=== PATIENT | female | born 1940 | race Caucasian/White ===

== ENCOUNTER 2017-07-08 12:20 | Inpatient (IN) | payer OTHER ==
[~2017-07-08] VITALS: Ht 167.6 cm; Wt 43.2 kg
--- NOTE | ~2017-07-08 | PROC ---
[address] [address] PROCEDURE REPORT Name: RHIANNON HAYWOOD Room: [address]#: [id number] Admission: 07/08/17 Attend Phys: Marianna Justice Discharge: 07/11/17 Date of : 40 Report #: [id number] THIS REPORT FOR: //name// For additional GI procedure details, please see the Provation report in Perceptive 7 content. By: 1314Medical Records Staff RITA /ANNITA
[~2017-07-08 12:20] MED LIST: ALDACTONE25 MG PO; ASPIR 8181 MG PO; ASPIRIN81 M2; ASPIRIN81 M2 PO; CARAFATE 1 GM TA1 G1 PO; CARDIZEM CD120 MG PO; CARVEDILOL6.25 MG PO; COLACE100 MG PO; COUMADIN 1MG TAB1 M1 PO; COUMADIN 4 MG TA4 M1 PO; DIGITEK250 MCG PO; DULCOLAX5 MG PO; DUONEB 2.5-0.5 M3 ML INH; FIBERCON625 M1 PO; FLAGYL500 MG PO; HYDROCODONE-AP1 EAC6 PO; LASIX 40 MG TAB40 M2 PO; LEVAQUIN 500 M500 M2 PO; LEVOTHYROXINE100 MC1 PO; LISINOPRIL2.5 MG; MIRALAX17 GM PO; NICODERM CQ1 EAC1 TD; NICOTINE TRANSD21 M1 TRANSDERM; NORCO 5-325 TA1 EACH PO; OXYCODONE HCL5 M1 PO; POTASSIUM20 PO; PREDNISONE 10 M10 MG PO; PROTONIX40 M1 PO; REGLAN 10 MG TA10 MG PO; SIMVASTATIN20 MG PO; SINGULAIR 10 MG10 M1 PO; TOPROL XL25 MG PO
[2017-07-08 12:28] VITALS: BP 114/83
[2017-07-08 13:46] LABS: PLATELET COUNT* 410 thou/uL (150-400); RDW-CV 31.6 % (10.5-14.5)
[2017-07-08 13:48] LABS: HEMATOCRIT 40.2 % (37.0-47.0); HEMOGLOBIN 13.1 gm/dL (12.0-15.0); MCH 24.8 pg (26.0-34.0); MCHC 32.6 g/dL (28.0-37.0); MCV 75.9 fL (80.0-100.0); MPV 8.8 fl. (7.2-11.1); NUCLEATED RBCS 0 /100WBC
[2017-07-08 13:49] LABS: ANION GAP 8 mmol/L (7-16); BUN 12 mg/dL (7-18); CALCIUM 9.1 mg/dL (8.5-10.1); CHLORIDE 91 mmol/L (98-107); CO2 27 mmol/L (21-32); CREATININE 0.7 mg/dL (0.6-1.3); GLUCOSE 87 mg/dL (70-99); POTASSIUM 3.9 mmol/L (3.5-5.1); SODIUM 126 mmol/L (136-145)
[2017-07-08 13:56] LABS: ALBUMIN 3.5 g/dL (3.4-5.0); ALKALINE PHOSPHATASE 102 U/L (46-116); SGOT 18 U/L (15-37); SGPT 19 U/L (30-65); TOTAL BILIRUBIN 0.5 mg/dL (<0.1-1.0); TOTAL PROTEIN 7.9 g/dL (6.4-8.2); TROPONIN-I LEVEL <0.06 ng/mL (<0.06)
[2017-07-08 14:00] LABS: INR 2.1; PROTIME 20.7 Seconds (9.20-11.50)
[2017-07-08 15:08] LABS: ABSOLUTE BASOPHILS 0.1 thou/uL (0.0-0.2); ABSOLUTE LYMPHOCYTES 0.5 thou/uL (0.8-5.3); ABSOLUTE NEUTROPHILS 10.3 thou/uL (1.6-8.1)
[2017-07-08 15:11] LABS: ANISOCYTOSIS 2+; HYPOCHROMASIA 1+; PLATELET ESTIMATE ADEQUATE
--- NOTE | 2017-07-08 15:15 | NUR ---
RECTAL PERFORMED BY MD ERIS ASSISTED BY MAURICE RN
[2017-07-08 16:56] LABS: URINE BILIRUBIN NEGATIVE (Negative); URINE BLOOD NEGATIVE (Negative); URINE CLARITY CLEAR; URINE COLOR YELLOW; URINE GLUCOSE-RANDOM NEGATIVE (Negative); URINE KETONES NEGATIVE (Negative); URINE LEUKOCYTES-REFLEX NEGATIVE (Negative); URINE NITRITE-REFLEX NEGATIVE (Negative); URINE PROTEIN NEGATIVE (Negative); URINE UROBILINOGEN 0.2 E.U./dl (0.2-1.0)
[2017-07-08 17:03] VITALS: BP 117/69
[2017-07-08 17:28] VITALS: BP 111/66
--- NOTE | 2017-07-08 17:41 | NUR ---
PATIENT TRANSFERRED FROM ER TO ROOM 103. ALERT AND ORIENTED X3. FORGETFUL. DENIES PAIN. ADMISSION HISTORY AND ASSESSMENT CHARTED. VSS. WHEEZING-SMOKER. RA SAT 98%. LAST BM FRIDAY. ENEMA GIVEN AT THIS TIME. REFUSED SCD'S AT THIS TIME DUE TO ENEMA BEING GIVEN AND SHE MAY NEED TO GET UP. EDUCATED ON FALL PREVENTION. INSTRUCTED TO CALL FOR ASSISTANCE IF NEEDED. AT BEDSIDE. CALL LIGHT WITHIN REACH. WILL CONTINUE TO MONITOR.
--- NOTE | 2017-07-08 17:46 | EKG ---
[place] [address] ELECTROCARDIOGRAM REPORT Name: RHIANNON HAYWOOD Room: [address] ADM IN .R.#: [id number] Admission: 07/08/17 Attend Phys: Marianna Justice Discharge: Date of : 40 Report #: [id number] THIS REPORT FOR: //name// [facility] ED Test Date: 2017-07-08 Test Time: 12:33:35 Pat Name: RHIANNON HAYWOOD Department: Room: [facility] Gender: Semiconductor Packages Tester: Ibeth BRUNER : 1940 Requested By: Inessa Adams Order Number: [id number] MD: Ravinder Dunn Measurements Intervals [place] Rate: 90 P: MS: QRS: 57 QRSD: 102 T: -5 QT: 359 QTc: 440 Interpretive Statements Atrial fibrillation Borderline repolarization abnormality Anteroseptal infarct age indeterminate possible Compared to ECG 03/01/2017 14:20:03 Possible ischemia no longer present Electronically Signed On 07-08-2017 17:46:50 SUPERVISOR PROP MAKING by Ravinder Dunn [email or web address] <ELECTRONICALLY SIGNED> By: Ravinder Dunn MD, FACC 07/08/17 1746 1233 1233 Ravinder Dunn MD, FAC /EPI
--- NOTE | 2017-07-08 18:17 | NUR ---
PATIENT HAS HAD SEVERAL VERY LARGE BOWEL MOVEMENTS SINCE ENEMA, SOFT/LIQUID STOOL.
[2017-07-08 20:30] VITALS: BP 109/71
[2017-07-09 04:54] LABS: ALBUMIN 2.7 g/dL (3.4-5.0); CALCIUM 8.2 mg/dL (8.5-10.1); CREATININE 0.5 mg/dL (0.6-1.3); POTASSIUM 4.3 mmol/L (3.5-5.1); TOTAL BILIRUBIN 0.5 mg/dL (<0.1-1.0); TOTAL PROTEIN 5.4 g/dL (6.4-8.2)
[2017-07-09 04:57] LABS: ABSOLUTE BASOPHILS 0.1 thou/uL (0.0-0.2); ABSOLUTE EOSINOPHILS 0.3 thou/uL (0.0-0.7); ABSOLUTE LYMPHOCYTES 0.7 thou/uL (0.8-5.3); ABSOLUTE MONOCYTES 1.4 thou/uL (0.0-1.2); ABSOLUTE NEUTROPHILS 11.3 thou/uL (1.6-8.1); BASOPHILS 0.7 %; EOSINOPHILS 2.3 %; HEMATOCRIT 34.3 % (37.0-47.0); LYMPHOCYTES 5.3 %; MCH 24.2 pg (26.0-34.0); MCHC 32.4 g/dL (28.0-37.0); MCV 74.8 fL (80.0-100.0); MONOCYTES 9.8 %; MPV 8.7 fl. (7.2-11.1); NUCLEATED RBCS 0 /100WBC; PLATELET COUNT* 359 thou/uL (150-400); POLYS 81.9 %; RBC 4.59 mil/uL (4.20-5.00); RDW-CV 31.4 % (10.5-14.5); WBC 13.8 thou/uL (4.0-11.0)
[2017-07-09 05:21] LABS: HEMOGLOBIN 11.1 gm/dL (12.0-15.0)
--- NOTE | 2017-07-09 07:44 | NUR ---
PATIENT ALERT TO SELF AND PLACE, CONFUSED. HAD MULTIPLE BOWEL MOVEMENTS DURING THE NIGHT. CHANGED EVERY HOUR, BARRIER CREAM APPLIED. FLUIDS INFUSING PER ORDER. BED ALARM IN USE. PICTURE ON CHART OF HEELED WOUND ON BUTTOCK, PRESENT ON ADMISSION. MEDINA TO DEPENDENT DRAINAGE. HOURLY ROUNDS. NURSING WILL CONTINUE TO MONITOR.
[2017-07-09 08:36] VITALS: BP 126/62
[2017-07-09 15:00] VITALS: BP 117/55
--- NOTE | 2017-07-09 16:18 | NUR ---
PATIENT ALERT AND ORIENTED X2. DENIES PAIN. TOLERATING MEALS. SOAP SUDS ENEMA TODAY, MULTIPLE SOFT/LIQUID BOWEL MOVEMENTS TODAY. DULCOLAX THIS AM WELL. REPOSITIONED EVERY 2 HOURS. BARRIER CREAM APPLIED- MELANY AREA EXCORIATED. WOUND LEFT BUTTOCKS UNCHANGED THIS SHIFT. DRESSING WILL NOT STAY IN PLACE DUE TO CONTINUOUS LOOSE STOOL. MEDINA IN PLACE WITH JANEL URINE. NS AT 100MLS/HR INFUSING. GI CONSULT TODAY. BED ALARM IN PLACE. CALL LIGHT WITHIN REACH. WILL CONTINUE TO MONITOR.
--- NOTE | 2017-07-09 16:22 | NUR ---
SPOKE WITH PT.AND AT BEDSIDE. SEEMS HARD OF HEARING. NSG.STATED PT.IS FORGETTFUL. PT.LIVES WITH . SHE HAS A WALKER AND CANE AT HOME. IS ON SERVICE WITH [facility]. HAS BEEN AT [place] BEFORE. SHE IS ABLE TO BATHE AND DRESS SELF. SHE SAID SHE AND GO OUT TO EAT OR HE BRINGS IN TAKE OUT FOOD. SHE SAID SHE DOESN'T EAT MUCH, SHE JUST ISN'T HUNGRY. WAS SEEN BY THERMOMETER PRODUCTION WORKER AND MEETS DX OF [employer]. BOOST DRINK ORDERED TID. CM WILL FOLLOW.
[2017-07-09 19:45] VITALS: BP 141/51
--- NOTE | 2017-07-10 04:47 | NUR ---
PATIENT ALERT TO SELF AND PLACE. STILL PASSING STOOL BUT NOT MUCH PREVIOUS NIGHT. CHANGED EVERY FEW HOURS, BARRIER CREAM APPLIED. LEFT BUTTOCK WOUND NOTED. REPOSITIONED EVERY TWO HOURS. MEDNIA TO DEPENDENT DRAINAGE. FLUIDS INFUSING PER ORDER. HOURLY ROUNDS. BED ALARM IN USE. NURSING WILL CONTINUE TO MONITOR.
[2017-07-10 07:44] VITALS: BP 100/64
[2017-07-10 11:27] VITALS: BP 100/64
[2017-07-10 11:57] VITALS: BP 100/64
[2017-07-10 15:54] VITALS: BP 110/58
--- NOTE | 2017-07-10 18:02 | NUR ---
ALERT AND ORIENTED TO PERSON AND PLACE. IV IS PATENT AND INFUSING. DENIES NEED FOR PAIN MEDICATION. DENIES NAUSEA. TOLERATING DIET. UP TO CHAIR WITH ASSIST X1 WITH WALKER AND GAIT BELT FOR LUNCH. VSS ON ROOM AIR. HOURLY ROUNDS HAVE BEEN MAINTAINED THROUGHOUT SHIFT. CALL LIGHT IS WITHIN REACH. NURSING WILL CONTINUE TO MONITOR.
[2017-07-10 20:00] VITALS: BP 113/75
--- NOTE | 2017-07-11 05:13 | NUR ---
PATIENT REMAINS ORIENTED TO SELF AND PLACE. VITALS STABLE. RA. REPOSITIONED EVERY TWO HOURS. INCONTIENT OF URINE AND STOOL. PATIENT ONLY HAD A FEW SMALL BOWEL MOVEMENTS DURING THE NIGHT. FLUIDS INFUSING PER ORDER. FREQUENT ROUNDS. BED ALARM IN USE. NURSING WILL CONTINUE TO MONITOR.
--- NOTE | 2017-07-11 07:17 | NUR ---
PATIENT REMAINS ORIENTED TO SELF AND PLACE. VITALS STABLE. RA. INCREASED WHEEZING NOTICED. PHYSICIAN NOTIFIED, ORDERS RECEIVED. REPOSITIONED EVERY TWO HOURS. INCONTIENT OF URINE AND STOOL. PATIENT HAD TWO SMALL FORMED BOWEL MOVEMENTS DURING MY SHIFT. FREQUENT ROUNDS. BED ALARM IN USE. NURSING WILL CONTINUE TO MONITOR.
[2017-07-11 07:30] VITALS: BP 117/74
[2017-07-11 12:00] LABS: ABSOLUTE BASOPHILS 0.1 thou/uL (0.0-0.2); ABSOLUTE EOSINOPHILS 0.2 thou/uL (0.0-0.7); ABSOLUTE LYMPHOCYTES 1.1 thou/uL (0.8-5.3); ABSOLUTE MONOCYTES 1.1 thou/uL (0.0-1.2); BASOPHILS 0.9 %; EOSINOPHILS 1.7 %; HEMATOCRIT 35.8 % (37.0-47.0); HEMOGLOBIN 11.7 gm/dL (12.0-15.0); LYMPHOCYTES 10.1 %; MCH 24.7 pg (26.0-34.0); MCHC 32.7 g/dL (28.0-37.0); MCV 75.7 fL (80.0-100.0); MONOCYTES 10.7 %; MPV 8.5 fl. (7.2-11.1); NUCLEATED RBCS 0 /100WBC; PLATELET COUNT* 351 thou/uL (150-400); POLYS 76.6 %; RBC 4.73 mil/uL (4.20-5.00); RDW-CV 31.5 % (10.5-14.5); WBC 10.5 thou/uL (4.0-11.0)
[2017-07-11 12:09] LABS: CALCIUM 8.8 mg/dL (8.5-10.1); CREATININE 0.5 mg/dL (0.6-1.3); POTASSIUM 4.4 mmol/L (3.5-5.1)
[2017-07-11 12:47] LABS: BURR CELLS 1+; OVALOCYTES 1+; PLATELET ESTIMATE ADEQUATE
[2017-07-11 12:48] LABS: ANISOCYTOSIS 2+; POIKILOCYTOSIS 2+; TARGET CELLS Occasional
[2017-07-11 14:43] VITALS: BP 117/74
[2017-07-11 15:06] LABS: INR 1.5; PROTIME 14.2 Seconds (9.20-11.50)
[2017-07-11 15:22] VITALS: BP 100/64
--- NOTE | 2017-07-11 15:47 | NUR ---
PT.TO BE DISCHARGED AFTER PROCEDURE TODAY. NOTIFIED [facility] [phone] AND FAXED HOME HEALTH ORDERS, H&P AND GI CONSULTATION TO HER [phone]. NURSING WILL FAX FINAL MEDICATION ORDERS TO [phone] WHEN SHE DISCHARGES.
[2017-07-11 16:00] VITALS: BP 100/64
[2017-07-11 17:00] VITALS: BP 121/69
--- NOTE | 2017-07-23 16:13 | CON ---
[address] [address] CONSULTATION Name: RHIANNON HAYWOOD Room: [address]#: [id number] Admission: 07/08/17 Attend Phys: Marianna Justice Discharge: 07/11/17 Date of : 40 Report #: [id number] THIS REPORT FOR: //name// CC: Angel Gottlieb DICTATED BY: Ashley Lopez [facility] DATE OF SERVICE: 07/09/2017 Please note at the time of this dictation, the patient was seen and physically examined by myself. REASON FOR CONSULTATION: Abdominal pain and fecal impaction. HISTORY OF PRESENT ILLNESS: This is a 77-year-old female who presented to the Emergency Room with having abdominal pain. She complained to the home health nurse that she was having a lot of abdominal pain and noticed that her stool was dark; however, in the ER, Hemoccult was negative and the patient is on warfarin. The patient was unable to let anyone know when her last time she had a bowel movement nor could her due to her dementia. The patient was seen by us back in 02/2017 for her complaints of some hematemesis. It was noted that she had abnormal findings on her CT scan of her esophagus in which she had grade D esophagitis, a large hiatal hernia and she had retained food in her stomach. At that time, she was started on Reglan. She was also started on Carafate and Protonix and was to follow up with us in the office, but she never did so. She also at that time underwent a flex sig to remove a fecal impaction in which she was noted to have internal and external hemorrhoids. The patient is unable to tell me if she takes anything at home for her bowels which in reviewing her medication list, it looks like she may take a bisacodyl daily, but is unsure and she cannot tell me if she does or not. ALLERGIES: No known drug allergies. MEDICATIONS FROM HOME: Digoxin, levothyroxine, metoprolol succinate, warfarin, simvastatin, spironolactone, bisacodyl and metoclopramide. PAST MEDICAL HISTORY: Atrial fibrillation, on anticoagulant therapy; GERD; hyperlipidemia; COPD; hypothyroidism; coronary artery disease. She has had MIs in 2009 and 2012 with stent placement and EGD back in February for her esophagitis. PAST SURGICAL HISTORY: Includes bilateral cataract removal, thyroid cancer with a partial thyroidectomy and her stents, right hip [place] [address] [place] [address] CONSULTATION Name: RHIANNON HAYWOOD Room: [address]#: [id number] Admission: 07/08/17 Attend Phys: Marianna Justice Discharge: 07/11/17 Date of : 40 Report #: [id number] FAMILY HISTORY: Noncontributory. SOCIAL HISTORY: She lives with her . Denies any alcohol, tobacco or illegal drug use at this time. REVIEW OF SYSTEMS: A 12-point review of systems is essentially negative except what is mentioned in the HPI. PHYSICAL EXAMINATION: VITAL SIGNS: Temperature 36.6, pulse 77, respirations 18, blood pressure 126/62. HEART: Regular rate and rhythm. LUNGS: Clear. ABDOMEN: Soft, positive bowel sounds in all 4 quadrants with some tenderness noted in the lower abdominal region. NEUROLOGIC: The patient is alert and oriented to person and she will follow commands. LABORATORY DATA: Hemoglobin is 11.1, hematocrit 34.3, white count is 13.8, platelets 259. Sodium 131, potassium 4.3, chloride 98, CO2 of 24, BUN is 8, creatinine is 0.5, GFR is 120, glucose is 91. PT is 20.7, INR is 2.1. Abdominal x-ray showed large amount of gas and stool throughout her colon and some rectal fecal impaction in the rectal vault. IMPRESSION: 1. Abdominal pain. 2. Constipation. 3. Loss of appetite. 4. History of grade D esophagitis and retained food back in February. 5. History of fecal impaction in 02/2017. 6. History of anticoagulant therapy secondary to atrial fibrillation. 7. Dementia. PLAN: 1. Soapsuds enema this a.m. 2. Dulcolax tablets 4 to equal 20 mg this a.m. 3. We will restart her Protonix and Reglan 5 mg a.c. and at bedtime. 4. The patient will need to have a followup EGD to check for healing of her esophagitis as an outpatient. She is currently not having any difficulty with swallowing. [address] [place] [address] CONSULTATION Name: CHASTITYMINOR THOMPSONGila Alexander Room: [address] IN M.R.#: [id number] Admission: 07/08/17 Attend Phys: Marianna Justice Discharge: 07/11/17 Date of : 40 Report #: [id number] Thank you for allowing us to participate in this patient's care. Please do not hesitate to call with any questions in regard to this consult. <ELECTRONICALLY SIGNED> By: Kaylin Galeana MD 07/23/17 1613 1116 [id number] Galeana MD /nt
== END 2017-07-11 19:51 | disposition home health service (06) | DRG 388 ==
LOC: M.ERS 12:20 → M.ORTHSURG 15:55 → M.TBA-ER 15:55 → M.ORTHSURG 16:25
PROVIDERS: Internal Medicine Gastroenterology; Personal Emergency Response Attendant; ADMIT Internal Medicine
PROC: 0DJD8ZZ Inspection of Lower Intestinal Tract, Via Natural or Artificial Opening Endoscopic (ICD-10-PCS; principal; 2017-07-11)
DX: K56.41 Fecal impaction (principal); G93.41 Metabolic encephalopathy; E43 Unspecified severe protein-calorie malnutrition; Z68.1 Body mass index [BMI] 19.9 or less, adult; R65.10 Systemic inflammatory response syndrome (SIRS) of non-infectious origin without acute organ dysfunction; I48.91 Unspecified atrial fibrillation; E78.5 Hyperlipidemia, unspecified; J44.9 Chronic obstructive pulmonary disease, unspecified; I10 Essential (primary) hypertension; I25.10 Atherosclerotic heart disease of native coronary artery without angina pectoris; Z96.641 Presence of right artificial hip joint; R33.9 Retention of urine, unspecified; E03.9 Hypothyroidism, unspecified; F03.90 Unspecified dementia, unspecified severity, without behavioral disturbance, psychotic disturbance, mood disturbance, and anxiety; N32.0 Bladder-neck obstruction; K21.0 Gastro-esophageal reflux disease with esophagitis; Z79.899 Other long term (current) drug therapy; Z79.01 Long term (current) use of anticoagulants; Z98.42 Cataract extraction status, left eye; Z98.41 Cataract extraction status, right eye; Z90.710 Acquired absence of both cervix and uterus; I25.2 Old myocardial infarction; Z95.5 Presence of coronary angioplasty implant and graft; Z85.850 Personal history of malignant neoplasm of thyroid; Z87.891 Personal history of nicotine dependence

== ENCOUNTER → 2018-04-21 | Outpatient (CLI) | payer OTHER | LOC: M.WC 09:48 | DX: I70.233 Atherosclerosis of native arteries of right leg with ulceration of ankle (principal); L97.311 Non-pressure chronic ulcer of right ankle limited to breakdown of skin; I11.0 Hypertensive heart disease with heart failure; I50.9 Heart failure, unspecified; J44.9 Chronic obstructive pulmonary disease, unspecified; K21.9 Gastro-esophageal reflux disease without esophagitis; F03.90 Unspecified dementia, unspecified severity, without behavioral disturbance, psychotic disturbance, mood disturbance, and anxiety; F17.200 Nicotine dependence, unspecified, uncomplicated; Z95.5 Presence of coronary angioplasty implant and graft ==

== ENCOUNTER → 2018-04-24 | Outpatient (CLI) | payer OTHER | LOC: M.ULTRA 12:44 | DX: S91.001A Unspecified open wound, right ankle, initial encounter (principal); L97.319 Non-pressure chronic ulcer of right ankle with unspecified severity ==

== ENCOUNTER → 2018-04-28 | Outpatient (CLI) | payer OTHER | LOC: M.WC 08:18 | DX: I70.233 Atherosclerosis of native arteries of right leg with ulceration of ankle (principal); L97.311 Non-pressure chronic ulcer of right ankle limited to breakdown of skin; I11.0 Hypertensive heart disease with heart failure; I50.9 Heart failure, unspecified; J44.9 Chronic obstructive pulmonary disease, unspecified; K21.9 Gastro-esophageal reflux disease without esophagitis; F03.90 Unspecified dementia, unspecified severity, without behavioral disturbance, psychotic disturbance, mood disturbance, and anxiety; F17.200 Nicotine dependence, unspecified, uncomplicated ==

== ENCOUNTER → 2018-05-05 | Outpatient (CLI) | payer OTHER | LOC: M.WC 04:31 | DX: I70.233 Atherosclerosis of native arteries of right leg with ulceration of ankle (principal); L97.311 Non-pressure chronic ulcer of right ankle limited to breakdown of skin; I11.0 Hypertensive heart disease with heart failure; I50.9 Heart failure, unspecified; J44.9 Chronic obstructive pulmonary disease, unspecified; K21.9 Gastro-esophageal reflux disease without esophagitis; F17.200 Nicotine dependence, unspecified, uncomplicated; F03.90 Unspecified dementia, unspecified severity, without behavioral disturbance, psychotic disturbance, mood disturbance, and anxiety ==

== ENCOUNTER → 2018-05-12 | Outpatient (CLI) | payer OTHER | LOC: M.WC 04:57 | DX: I70.233 Atherosclerosis of native arteries of right leg with ulceration of ankle (principal); L97.311 Non-pressure chronic ulcer of right ankle limited to breakdown of skin; I11.0 Hypertensive heart disease with heart failure; I50.9 Heart failure, unspecified; J44.9 Chronic obstructive pulmonary disease, unspecified; K21.9 Gastro-esophageal reflux disease without esophagitis; F17.200 Nicotine dependence, unspecified, uncomplicated; F03.90 Unspecified dementia, unspecified severity, without behavioral disturbance, psychotic disturbance, mood disturbance, and anxiety ==

== ENCOUNTER → 2018-05-20 | Outpatient (CLI) | payer OTHER | LOC: M.WC 03:17 | DX: I70.233 Atherosclerosis of native arteries of right leg with ulceration of ankle (principal); L97.312 Non-pressure chronic ulcer of right ankle with fat layer exposed; I11.0 Hypertensive heart disease with heart failure; I50.9 Heart failure, unspecified; J44.9 Chronic obstructive pulmonary disease, unspecified; K21.9 Gastro-esophageal reflux disease without esophagitis; F03.90 Unspecified dementia, unspecified severity, without behavioral disturbance, psychotic disturbance, mood disturbance, and anxiety; F17.290 Nicotine dependence, other tobacco product, uncomplicated ==

== ENCOUNTER → 2018-05-27 | Outpatient (CLI) | payer OTHER | LOC: M.WC 04:32 | DX: I70.233 Atherosclerosis of native arteries of right leg with ulceration of ankle (principal); L97.312 Non-pressure chronic ulcer of right ankle with fat layer exposed; I11.0 Hypertensive heart disease with heart failure; I50.9 Heart failure, unspecified; J44.9 Chronic obstructive pulmonary disease, unspecified; K21.9 Gastro-esophageal reflux disease without esophagitis; F03.90 Unspecified dementia, unspecified severity, without behavioral disturbance, psychotic disturbance, mood disturbance, and anxiety; F17.290 Nicotine dependence, other tobacco product, uncomplicated ==

== ENCOUNTER → 2018-06-03 | Outpatient (CLI) | payer OTHER | LOC: M.WC 02:50 | DX: I70.233 Atherosclerosis of native arteries of right leg with ulceration of ankle (principal); L97.311 Non-pressure chronic ulcer of right ankle limited to breakdown of skin; I11.0 Hypertensive heart disease with heart failure; I50.9 Heart failure, unspecified; J44.9 Chronic obstructive pulmonary disease, unspecified; K21.9 Gastro-esophageal reflux disease without esophagitis; F17.290 Nicotine dependence, other tobacco product, uncomplicated; F03.90 Unspecified dementia, unspecified severity, without behavioral disturbance, psychotic disturbance, mood disturbance, and anxiety ==

== ENCOUNTER → 2018-06-17 | Outpatient (CLI) | payer OTHER | LOC: M.WC 06-09 11:00 | DX: I70.233 Atherosclerosis of native arteries of right leg with ulceration of ankle (principal); L97.312 Non-pressure chronic ulcer of right ankle with fat layer exposed; I11.0 Hypertensive heart disease with heart failure; I50.9 Heart failure, unspecified; J44.9 Chronic obstructive pulmonary disease, unspecified; K21.9 Gastro-esophageal reflux disease without esophagitis; K51.90 Ulcerative colitis, unspecified, without complications; F03.90 Unspecified dementia, unspecified severity, without behavioral disturbance, psychotic disturbance, mood disturbance, and anxiety; F17.290 Nicotine dependence, other tobacco product, uncomplicated ==

== ENCOUNTER 2018-06-22 11:54 | Inpatient (IN) | payer OTHER ==
[~2018-06-22] VITALS: Ht 167.6 cm; Wt 52.6 kg
[~2018-06-22 11:54] MED LIST changes: -ALDACTONE25 MG PO; +SPIRONOLACTONE25 M1 PO
[2018-06-22 12:50] LABS: ABSOLUTE BASOPHILS 0.1 thou/uL (0.0-0.2); ABSOLUTE EOSINOPHILS 0.1 thou/uL (0.0-0.7); ABSOLUTE LYMPHOCYTES 0.7 thou/uL (0.8-5.3); ABSOLUTE MONOCYTES 0.6 thou/uL (0.0-1.2); EOSINOPHILS 1.7 %; HEMATOCRIT 37.8 % (37.0-47.0); HEMOGLOBIN 12.4 gm/dL (12.0-15.0); LYMPHOCYTES 10.9 %; MCH 27.5 pg (26.0-34.0); MCHC 32.8 g/dL (28.0-37.0); MCV 83.9 fL (80.0-100.0); MONOCYTES 8.8 %; MPV 7.6 fl. (7.2-11.1); NUCLEATED RBCS 0 /100WBC; PLATELET COUNT* 309 thou/uL (150-400); POLYS 77.6 %; RBC 4.51 mil/uL (4.20-5.00); RDW-CV 16.7 % (10.5-14.5); WBC 6.5 thou/uL (4.0-11.0)
[2018-06-22 12:58] LABS: ANION GAP 8 mmol/L (7-16); BUN 7 mg/dL (7-18); CALCIUM 8.4 mg/dL (8.5-10.1); CHLORIDE 100 mmol/L (98-107); CO2 26 mmol/L (21-32); CREATININE 0.6 mg/dL (0.6-1.3); GLUCOSE 124 mg/dL (70-99); POTASSIUM 3.6 mmol/L (3.5-5.1); SODIUM 134 mmol/L (136-145)
[2018-06-22 13:00] LABS: APTT 40.2 Seconds (25.0-31.3); INR 2.4; PROTIME 24.1 Seconds (9.20-11.50)
[2018-06-22 13:09] LABS: ALBUMIN 3.1 g/dL (3.4-5.0); ALKALINE PHOSPHATASE 96 U/L (46-116); NT-PRO BRAIN NAT PEPTIDE 4781 pg/mL (<300); SGOT 14 U/L (15-37); SGPT 8 U/L (30-65); TOTAL BILIRUBIN 0.4 mg/dL (<0.1-1.0); TOTAL PROTEIN 6.6 g/dL (6.4-8.2); TROPONIN-I LEVEL <0.06 ng/mL (<0.06)
[2018-06-22 14:11] VITALS: BP 109/65
--- NOTE | 2018-06-22 14:15 | EKG ---
[place] [address] ELECTROCARDIOGRAM REPORT Name: RHIANNON HAYWOOD Room: [place] [address] ADM IN .R.#: [id number] Admission: 06/22/18 Attend Phys: Marianna Justice Discharge: Date of : 40 Report #: [id number] THIS REPORT FOR: //name// [facility] ED Test Date: 2018-06-22 Test Time: 12:43:21 Pat Name: RHIANNON HAYWOOD Department: Room: [facility] Gender: F Medical Case Worker: JORGE : 1940 Requested By: Kiran Multani Order Number: [id number] MD: Virgil Gamez Measurements Intervals [place] Rate: 110 P: NM: QRS: 39 QRSD: 86 T: 256 QT: 335 QTc: 454 Interpretive Statements Atrial fibrillation Borderline low voltage, extremity leads Probable left ventricular hypertrophy Nonspecific T abnormalities, lateral leads Compared to ECG 07/08/2017 12:33:35 T-wave abnormality now present Myocardial infarct finding no longer present Electronically Signed On 06-22-2018 14:15:25 RESIDENTIAL COORDINATOR by Virgil Gamez [email or web address] <ELECTRONICALLY SIGNED> By: Virgil Gamez MD, [facility] 06/22/18 1415 1243 1243 Virgil Gamez MD, [facility] /EPI
[2018-06-22 15:38] VITALS: BP 118/65
--- NOTE | 2018-06-22 17:48 | NUR ---
PATIENT ADMITTED FROM ED CO SOA SAO2 GREATER THAN 94%. DENIES PAIN. CARDIZEM GTT. RUNNING HR 84.
[2018-06-22 20:00] VITALS: BP 118/67
[2018-06-22 21:00] VITALS: BP 120/70
[2018-06-22 22:00] VITALS: BP 117/76
[2018-06-23] VITALS (11 sets, daily range): BP systolic 81–143; BP diastolic 54–89
--- NOTE | 2018-06-23 04:39 | NUR ---
PT CARE ASSUMED AT 1930. SAT MAINTAINED IN 2L NC. ALERT AND ORIENTED X4. CALL LIGHT WITHIN REACH AND BED IN LOW POSITION. PT ON CARDIZEM DRIP. DENIES CHEST PAIN AND SOB. HOURLY ROUNDING DONE FOR PT SAFTEY. VSS AND CHARTED.
--- NOTE | 2018-06-23 10:42 | NUR ---
PT ALERT AND ORIENTED. TELE TRACKING AFIB, RATES 60'S-90'S CARDIZEM GTT @5MG/H. PO CARIZEM GIVEN THIS AM AND GTT OFF. PT SATTING MID 90'S 2L WITH UNPRODUCTIVE COUGH. EDUCATED ON SAFETY AND PLAN OF CARE. PLEASE SEE ASSESSMENT FOR ADDITIONAL INFORMATION. WILL CONTINUE TO MONITOR
[2018-06-24] VITALS (8 sets, daily range): BP systolic 112–154; BP diastolic 62–96
--- NOTE | 2018-06-24 04:48 | NUR ---
PT CARE ASSUMED AT 1930. SAT MAINTAINED IN 2L NC THROUGHOUT THE NIGHT. PT IS ALERT AND ORIENTED BUT CONFUSED. CALL LIGHT WITHIN REACH AND BED IN LOW POSITION. CARDIZEM DRIP TITRATED FOR AFIB 5-10ML/HR DURING NIGHT. CURRENTLY RUNNING ON 5ML/HR. PT IS INCONTINENT. DENIES PAIN AND SOB. HOURLY ROUNDING DONE FOR PT SAFETY.
--- NOTE | 2018-06-24 11:59 | NUR ---
CM went to assess Pt, Pt seemed confused. CM left for Pt's sons, both Malik and Nelson, awaiting call back.
--- NOTE | 2018-06-24 13:52 | NUR ---
Pt is alert and confused. Cm spoke with Pt's son, Malik, on the phone. Son informs that Pt resides at [facility], Pt's continues to live at home. Pt has a walker and cane that she uses for mobility. Hx of [facility]. Hx of [facility]. Son reports that family is in discussions about putting Pt on hospice, son states that CM does not need to pursue this discussion while Pt is here. Goal is for Pt to return to [facility] at dc, will provide dc transportation.
--- NOTE | 2018-06-24 18:10 | NUR ---
PT UP IN CHAIR MOST OF DAY, CONFUSED AT TIMES BUT EASILY REDIRECTED. PT RESPIRATIONS SLIGHLTY LABORED AT REST WITH AUDIBLE EXPIRATORY WHEEZES. 2L O2 NC SAT MID 90'S, INCREASED SOA WITH ACTIVITY. PT UP WITH SBA ASSIST. PT ABLE TO MAKE NEEDS KNOWN, CALL LIGHT IN REACH
[2018-06-25] VITALS: BP 105/63
[2018-06-25 04:00] VITALS: BP 134/72
--- NOTE | 2018-06-25 04:45 | NUR ---
PT CARE ASSUMED AT 1930. SAT MAINTAINED AT RA DURING THE NIGHT. ALERT AND ORIENTED X4 AND FORGETFUL AT TIMES. DENIES SOB AND CHEST PAIN. CALL LIGHT WITHIN REACH AND BED IN LOW POSITION. PT IS INCONTINENT. HOURLY ROUNDING DONE FOR PT SAFETY. TRACING AFIB ON THE MONITOR.
--- NOTE | 2018-06-25 07:15 | NUR ---
CHANGE OF SHIFT BEDSIDE REPORT GIVEN PATIENT SEEN AT BEDSIDE, IN BED RESTING ASSUMED PATIENT CARE
[2018-06-25 08:00] VITALS: BP 129/88
[2018-06-25 12:23] VITALS: BP 138/97
[2018-06-25] MEDS ORDERED: CEFUROXIME250 MG PO (13:20)
[2018-06-25] MEDS ORDERED: PREDNISONE 5 MG5 M1 PO (13:20)
--- NOTE | 2018-06-25 14:04 | NUR ---
DECK LID FITTER SPOKE TO NURSE WITH SOLA STEARNS TO DISCUSS PATIENT'S D/C, AND THE NEED TO FAX D/C ORDERS FOR THE PATIENT, AND SHE INFORMS THAT THERE IS NO NEED TO FAX D/C ORDERS AND TO JUST SEND THE PAPERWORK WITH THE PATIENT. THE NURSE ALSO INFORMS THAT THERE IS NO NEED TO ORDER PT/OT FOR THE PATIENT IT IS ALREADY PROVIDED. CM WILL REMAIN AVIALABLE TO ASSIST AND FOLLOW NEEDED.
[2018-06-25 14:06] VITALS: BP 138/97
[2018-06-25 15:05] LABS: PROTIME 43.9 Seconds (9.20-11.50)
[2018-06-25 15:07] LABS: INR 4.3
--- NOTE | 2018-06-25 15:30 | NUR ---
PATIENT DISCHARGED TO HOME ALL DISCHARGE INSTRUCTIONS GIVEN, ACKNOWLEDGED, AND SIGNED COPIES GIVEN IV AND HEART MONITOR REMOVED PERSONAL BELONGINGS RETURNED ASSISTED OUT VIA WC GOOD CONDITION TO WAITING CAR WITH SON
== END 2018-06-25 15:30 | disposition home or self-care (01) | DRG 177 ==
LOC: M.ERS 11:54 → M.TBA-ER 13:20 → M.2W 13:20
PROVIDERS: Emergency Medicine Emergency Medical Services; ADMIT Internal Medicine
DX: J69.0 Pneumonitis due to inhalation of food and vomit (principal); J80 Acute respiratory distress syndrome; I48.91 Unspecified atrial fibrillation; J44.9 Chronic obstructive pulmonary disease, unspecified; I10 Essential (primary) hypertension; I25.10 Atherosclerotic heart disease of native coronary artery without angina pectoris; K21.9 Gastro-esophageal reflux disease without esophagitis; E78.5 Hyperlipidemia, unspecified; F17.210 Nicotine dependence, cigarettes, uncomplicated; E89.0 Postprocedural hypothyroidism; Z96.641 Presence of right artificial hip joint; Z95.5 Presence of coronary angioplasty implant and graft; Z85.850 Personal history of malignant neoplasm of thyroid; Z98.42 Cataract extraction status, left eye; Z98.41 Cataract extraction status, right eye; Z90.710 Acquired absence of both cervix and uterus; I25.2 Old myocardial infarction

== ENCOUNTER → 2018-07-01 | Outpatient (CLI) | payer OTHER ==
[~2018-07-01] MED LIST changes: +CEFUROXIME250 MG PO; +PREDNISONE 5 MG5 M1 PO
== END ==
LOC: M.WC 10:38
DX: I70.233 Atherosclerosis of native arteries of right leg with ulceration of ankle (principal); L97.311 Non-pressure chronic ulcer of right ankle limited to breakdown of skin; I11.0 Hypertensive heart disease with heart failure; I50.9 Heart failure, unspecified; K21.9 Gastro-esophageal reflux disease without esophagitis; J44.9 Chronic obstructive pulmonary disease, unspecified; F03.90 Unspecified dementia, unspecified severity, without behavioral disturbance, psychotic disturbance, mood disturbance, and anxiety; F17.210 Nicotine dependence, cigarettes, uncomplicated